=== PATIENT | male | born 1935 | race Caucasian/White ===

== ENCOUNTER 2017-10-07 15:25 | Emergency (ER) | payer MEDICARE, BC ==
[2017-10-07] MEDS ORDERED: SODIUM CHLORIDE 0.9% FLUSH 10 ML SOL IV PRN (15:49)
[2017-10-07 16:03] VITALS: TEMP 98.6
[2017-10-07 18:23] VITALS: BP 154/79; PULSE 76; RESP 17; O2SAT 97
== END 2017-10-07 17:32 | disposition home or self-care (01) | DRG 552 ==
LOC: ED 15:25 → SUPCPDRO 15:25 → ED 17:32
DX: M50.30 Other cervical disc degeneration, unspecified cervical region (principal); M62.81 Muscle weakness (generalized); M48.00 Spinal stenosis, site unspecified
CPT/HCPCS: 72125; 83880; 84484; 99283; 99284

== ENCOUNTER 2018-02-23 11:28 | Inpatient (IN) | payer MEDICARE, BC ==
[2018-02-23] MEDS ORDERED: SENNOSIDES A AND B 8.6 MG TAB PO PRN (16:13)
[2018-02-23] MEDS ORDERED: POLYETHYLENE GLYCOL 17 GM/1 TBS PDS PO PRN (16:22)
[2018-02-23] MEDS: APAP/OXYCODONE 1 EACH TABLET PO PRN ×2 (17:55→22:50)
[2018-02-24] MEDS: APAP/OXYCODONE 1 EACH TABLET PO PRN ×3 (07:35→22:01)
[2018-02-24] MEDS ORDERED: PEG-400/PROPYLENE GLYCOL 1 DROP SOL EACHEYE PRN (09:00)
[2018-02-25] MEDS: APAP/OXYCODONE 1 EACH TABLET PO PRN ×3 (07:32→20:50)
[2018-02-26] MEDS: APAP/OXYCODONE 1 EACH TABLET PO PRN ×3 (06:08→22:06)
[2018-02-27] MEDS: APAP/OXYCODONE 1 EACH TABLET PO PRN ×3 (06:14→21:12)
[2018-02-27 07:42] LABS: BASOPHILS % (AUTO) 1 % (0-3); EOSINOPHILS % (AUTO) 2 % (0-9); HEMATOCRIT 31 % (39-53); HEMOGLOBIN 10.1 gm/dl (13.5-17.7); LYMPHOCYTES % (AUTO) 23.4 % (10-50); MEAN CORPUSCULAR HEMOGLOBIN 28.8 pg (27.0-32.0); MEAN CORPUSCULAR HGB CONC 32.1 gm/dl (32.0-36.0); MEAN CORPUSCULAR VOLUME 90 fL (80-100); MONOCYTES % (AUTO) 11.6 % (0-12); NEUTROPHILS % (AUTO) 61.7 % (37-80)
[2018-02-27 07:50] LABS: CALCIUM 8.3 mg/dl (8.5-10.1); CARBON DIOXIDE 30.2 mEq/L (21-32); CREATININE 1.05 mg/dl (0.80-1.30); POTASSIUM 4.4 mMol/L (3.5-5.1)
[2018-02-28] MEDS: APAP/OXYCODONE 1 EACH TABLET PO PRN ×2 (13:41→21:24)
[2018-03-01] MEDS: APAP/OXYCODONE 1 EACH TABLET PO PRN ×2 (06:36→21:41)
[2018-03-02] MEDS: APAP/OXYCODONE 1 EACH TABLET PO PRN ×3 (08:49→22:24)
[2018-03-02 12:20] VITALS: RESP 18
[2018-03-03] MEDS: APAP/OXYCODONE 1 EACH TABLET PO PRN ×2 (07:34→12:45)
[2018-03-03 07:37] VITALS: BP 143/78; PULSE 95; TEMP 97.1; O2SAT 98
[2018-03-03 08:13] LABS: BASOPHILS % (AUTO) 1 % (0-3); EOSINOPHILS % (AUTO) 2 % (0-9); HEMATOCRIT 35 % (39-53); HEMOGLOBIN 11.4 gm/dl (13.5-17.7); LYMPHOCYTES % (AUTO) 22.9 % (10-50); MEAN CORPUSCULAR HEMOGLOBIN 28.7 pg (27.0-32.0); MEAN CORPUSCULAR HGB CONC 32.3 gm/dl (32.0-36.0); MEAN CORPUSCULAR VOLUME 89 fL (80-100); MONOCYTES % (AUTO) 7.9 % (0-12); NEUTROPHILS % (AUTO) 66.6 % (37-80)
[2018-03-03 08:14] LABS: CALCIUM 8.9 mg/dl (8.5-10.1); CARBON DIOXIDE 27.8 mEq/L (21-32); CREATININE 1.1 mg/dl (0.80-1.30); POTASSIUM 3.8 mMol/L (3.5-5.1)
[2018-03-03] MEDS ORDERED: INFLUENZA HIGH DOSE VACCINE 0.5 ML SUS IM ONE (09:00)
== END 2018-03-03 14:00 | disposition home or self-care (01) | DRG 315 ==
LOC: ACUTE CARE 14:48
PROVIDERS: ADMIT Family Medicine; ATTEND Family Medicine
PROC: F01ZBFZ Bed Mobility Assessment using Assistive, Adaptive, Supportive or Protective Equipment (ICD-10-PCS; principal; 2018-02-24)
PROC: F01K5ZZ Range of Motion and Joint Integrity Assessment of Musculoskeletal System - Upper Back / Upper Extremity (ICD-10-PCS; 2018-02-24)
PROC: F02Z3ZZ Grooming/Personal Hygiene Assessment (ICD-10-PCS; 2018-02-24)
DX: I95.89 Other hypotension (principal); D62 Acute posthemorrhagic anemia; D72.829 Elevated white blood cell count, unspecified; Z98.890 Other specified postprocedural states; M50.30 Other cervical disc degeneration, unspecified cervical region
CPT/HCPCS: 36415; 80048; 85025; 90662; A6219; A6232; A6402; A9270-GY; G0008

== ENCOUNTER 2019-01-03 09:02 | Day surgery (SDC) | payer OTHER, BC, MEDICARE | END 2019-01-03 11:02 | disposition home or self-care (01) | LOC: SURG 09:02 ==